=== PATIENT | male | born 1985 | race Caucasian/White ===

== ENCOUNTER 2025-08-23 19:07 | Emergency (ER) | payer BC ==
[2025-08-23] MEDS ORDERED: ASPIRIN 81 MG CHEWABLE TABLET ONE (19:27)
--- NOTE | 2025-08-23 20:07 | RAD REPORT ---
EXAM: Chest Single View HISTORY: 40 years Male CHEST PAIN COMPARISON: No prior exams FINDINGS: LUNGS/PLEURA: The lungs are clear. No pleural effusions or pneumothorax. No pulmonary edema. CARDIAC/MEDIASTINUM: The cardiac silhouette is within normal limits. UPPER ABDOMEN: No significant abnormality. BONES: No acute abnormality. LINES/TUBES/OTHER: N/A IMPRESSION: No evidence of acute cardiopulmonary disease.
[2025-08-23 20:08] LABS: Absolute Lymphocytes (CBC) 2.0 K/uL (0.7-4.9); Hematocrit 43.2 % (39.6-49.0); Hemoglobin 14.8 g/dL (13.6-17.9); MCH 28.6 pg (27.0-35.0); MCHC 34.2 g/dL (32.0-36.0); MCV 83.8 fL (80-100); MPV 8.2 fL (7.6-11.3); Nucleated RBC Absolute Count 0.0 (0-0); Nucleated Red Blood Cells % 0.1 % (0-0); RBC Red Blood Cell Count 5.16 M/uL (4.33-5.43); White Blood Count 7.80 thou/uL (4.3-10.9)
[2025-08-23 20:16] LABS: PT Prothrombin Time 12.3 SECONDS (10-13.0); Protime INR 1.09
[2025-08-23 20:29] LABS: ALT/SGPT 30 U/L (16-61); AST/SGOT 12 U/L (15-37); Albumin 3.6 g/dL (3.4-5.0); Albumin/Globulin Ratio 0.8 (1.1-1.8); Alkaline Phosphatase 55 U/L (45-117); Anion Gap 7.3 mEq/L (5.0-15.0); BUN Blood Urea Nitrogen 12 mg/dL (7-18); Globulin 4.5 g/dL (2.3-3.5); Glucose Level 109 mg/dL (74-106); Magnesium 2.4 mg/dL (1.6-2.4); NT PRO-BNP 26 pg/mL (<125); Potassium 4.3 mEq/L (3.5-5.1); Troponin High Sensitivity 8.8 pg/mL (<58.9)
[2025-08-23 20:35] LABS: Bilirubin Indirect, Calculated 0.5 mg/dL (0.2-0.8)
--- NOTE | 2025-08-23 20:39 | ER ---
Nurse's Notes [facility] Name: Kareem Singh Age: 40 yrs Sex: Male : 1985 Arrival Date: 08/23/2025 Time: 19:07 Bed 6 Private MD: Diagnosis: Chest pain, unspecified;Anxiety disorder, unspecified Presentation: 08/23 19:16 Chief complaint: Patient states: while driving to town patient had an episode of me1 midsternal cp that lasted about 2 minutes. Pain level was 5/10. Denies SOB. Denies associated nausea. Symptoms have resolved. Coronavirus screen: Vaccine status: Patient reports being unvaccinated. Ebola Screen: No symptoms or risks identified at this time. Initial Sepsis Screen: Does the patient meet any 2 criteria? No. Patient's initial sepsis screen is negative. Does the patient have a suspected source of infection? No. Patient's initial sepsis screen is negative. Risk Assessment: Do you want to hurt yourself or someone else? Patient reports no desire to harm self or others. Onset of symptoms was August 23, 2025 at 18:20. 19:16 Method Of Arrival: Ambulatory me1 19:16 Acuity: FRANCISCA 3 me1 Historical: - Allergies: 19:20 No Known Allergies; me1 - Home Meds: 19:20 None [Active]; me1 - PMHx: 19:20 None; me1 - PSHx: 19:20 None; me1 - Immunization history:: Adult Immunizations up to date. - Infectious Disease History:: Denies. - Social history:: Smoking status: Patient denies any tobacco usage or history of. Screenin:[facility] ED Fall Risk Assessment (Adult) History of falling in the last 3 months, zm including since admission No falls in past 3 months (0 pts) Confusion or Disorientation No (0 pts) Intoxicated or Sedated No (0 pts) Impaired Gait No (0 pts) Mobility Assist Device Used No (0 pt) Altered Elimination No (0 pt) Score/Fall Risk Level 0 - 2 = Low Risk Oriented to surroundings, Maintained a safe environment, Educated pt \T\ family on fall prevention, incl call for assistance when getting out of bed, Assessed \T\ reinforced patient's understanding of fall precautions, Hourly rounding (assess needs \T\ fall precautionary measures) done, Used ambulatory aids as needed (educated on \T\ assisted with), Used gait belt as appropriate. Abuse screen: Denies threats or abuse. Denies injuries from another. Nutritional screening: No deficits noted. Tuberculosis screening: No symptoms or risk factors identified. Assessment: 19:20 General: Appears in no apparent distress. comfortable, Behavior is cooperative, crying. zm 19:20 Pain: Complains of pain in mid-sternal area and left breast Pain does not radiate. Pain zm currently is 0 out of 10 on a pain scale. at worst was 3 out of 10 on a pain scale. Pain began 1 hour ago. Is episodic, lasting a few minutes. Noted to be crying, Also complains of no other associated symptoms. Neuro: Level of Consciousness is awake, alert, obeys commands, Oriented to person, place, time, situation. 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 Rhythm is sinus rhythm. Respiratory: Airway is patent Trachea midline Respiratory effort is even, unlabored, Respiratory pattern is regular, symmetrical, Breath sounds are clear bilaterally. in right upper lobe, left upper lobe, left lower lobe and right lower lobe. GI: No deficits noted. No signs and/or symptoms were reported involving the gastrointestinal system. Abdomen is obese, Bowel sounds present X 4 quads. Abd is soft and non tender X 4 quads. 20:43 Reassessment: Patient and/or family updated on plan of care and expected duration. Pain kd3 level reassessed. Patient is alert, oriented x 3, equal unlabored respirations, skin warm/dry/pink. Patient denies pain at this time. Vital Signs: 19:16 BP 156 / 102; Pulse 69; Resp 19; Temp 98.4; Pulse Ox 98% ; Weight 158.76 kg; Height 5 me1 ft. 8 in. ; Pain 0/10; 20:44 BP 127 / 82; Pulse 71; Resp 16; Pulse Ox 98% on R/A; kd3 19:16 Body Mass Index 53.22 (158.76 kg, 172.72 cm) nv1 19:16 Pain Scale: [place] [facility] [place]: 19:08 Patient arrived in ED. mr 19:09 Patient has correct armband on for positive identification. Bed in low position. Call zm light in reach. Side rails up X2. Provided Education on: CALL LIGHT USE. Client placed on continuous cardiac and pulse oximetry monitoring. NIBP monitoring applied. field merchandiser on. Pulse ox on. NIBP on. 19:10 Elsi Echeverria PA-C is PHCP. sb4 19:10 Micaela Stevenson MD is Attending Physician. sb4 19:15 Initial lab(s) drawn, by me, sent to lab. EKG done, by ED staff, reviewed by Elsi Echeverria PA-C. Inserted saline lock: 20 gauge in right antecubital area, using aseptic technique. Blood collected. Flushed with 10 mL NS. Patient maintains SpO2 saturation greater than 95% on room air. 19:20 Triage completed. me1 19:20 Arm band placed on Patient placed in an exam room. me1 19:34 Alberta Moore, RN is Primary Nurse. zm 19:35 Basic Metabolic Panel Sent. zm 19:35 CBC with Diff Sent. zm 19:35 LFT's Sent. zm 19:35 Magnesium Sent. zm 19:35 NT PRO-BNP Sent. zm 19:35 PT-INR Sent. zm 19:35 Troponin HS Sent. zm 19:52 XRAY Chest (1 view) In Process Unspecified. EDMS 20:53 No provider procedures requiring assistance completed. IV discontinued, intact, kd3 bleeding controlled, No redness/swelling at site. Pressure dressing applied. Administered Medications: 19:40 Drug: Aspirin PO Chewable Tablet 324 mg PO once; 81 mg tablets x 4 Route: PO; zm 20:54 Follow up: Response: No adverse reaction kd3 Medication: 19:35 VIS not applicable for this client. Outcome: 20:38 Discharge ordered by . sb4 20:53 Discharged to home ambulatory, kd3 20:53 Condition: stable 20:53 Discharge instructions given to patient, Instructed on discharge instructions, follow up and referral plans. Demonstrated understanding of instructions, follow-up care, 20:54 Patient left the ED. kd3 Signatures: Dispatcher [employer] EDNV IvanDiane, [place] Reg mr JennyAnita, RN RN kd3 Alberta Moore, Elsi Wall RN, PA-C PA-C sb4 Hanh Ayala RN RN me1 Corrections: (The following items were deleted from the chart) 20:21 19:20 Pain: Denies pain. Complains of pain in mid-sternal area and left breast Pain zm does not radiate. Pain currently is 0 out of 10 on a pain scale. at worst was 3 out of 10 on a pain scale. Pain began 1 hour ago. Is episodic, lasting a few minutes. Noted to be crying, Also complains of no other associated symptoms. zm 20: 19:20 Cardiovascular: Heart tones S1 S2 present Capillary refill < 3 seconds in zm bilateral fingers Patient's skin is warm and dry. Rhythm is sinus rhythm zm 20: 19:20 Pain: Denies pain. Complains of pain in mid-sternal area and left breast Pain zm does not radiate. Pain currently is 0 out of 10 on a pain scale. at worst was 3 out of 10 on a pain scale. Pain began 1 hour ago. Is episodic, lasting a few minutes. Noted to be crying, Also complains of no other associated symptoms. 20: 20:21 Pain: Complains of pain in DENIES PAIN AT THIS MOMMENT. REPORTS HAVING AN EPISODE zm OF CHEST PRESSURE LIKE AN HOUR PRIOR TO ARRIVAL zm
--- NOTE | 2025-08-23 20:39 | EDPHYS ---
Physician Documentation [facility] Name: Kareem Singh Age: 40 yrs Sex: Male : 1985 Arrival Date: 08/23/2025 Time: 19:07 Bed 6 Private MD: ED Physician Micaela Stevenson HPI: 08/23 19:21 This 40 yrs old Male presents to ER via Ambulatory with complaints of Chest Pain. sb4 19:21 Patient states that he was driving when all of a sudden he got a pain in his chest that sb4 lasted a few minutes. He states that it was not associated with any symptoms, did not radiate anywhere. He denies any prior episodes of this happening. He states that is since resolved but wanted to come in and be evaluated. He denies any diagnosed medical history. Does state that he feels very anxious. Historical: - Allergies: 19:20 No Known Allergies; me1 - Home Meds: 19:20 None [Active]; me1 - PMHx: 19:20 None; me1 - PSHx: 19:20 None; me1 - Immunization history:: Adult Immunizations up to date. - Infectious Disease History:: Denies. - Social history:: Smoking status: Patient denies any tobacco usage or history of. ROS: 19:21 Constitutional: Negative for fever, chills, and weight loss, sb4 19:21 Cardiovascular: Positive for chest pain, 19:21 All other systems are negative, Exam: 19:21 Head/Face: Normocephalic, atraumatic. Eyes: Extra-ocular motions intact. Periorbital sb4 areas with no swelling, redness, or edema. ENT: Mucous membranes moist. Cardiovascular: Regular rate and rhythm with a normal S1 and S2. Respiratory: No increased work of breathing, no retractions or nasal flaring. Abdomen/GI: Soft, non-tender, no distension. Skin: Warm, dry with normal turgor. Normal color with no rashes, no lesions, and no evidence of cellulitis. 19:21 Constitutional: The patient appears alert, awake, anxious, 19:21 Constitutional: The patient appears obese, Vital Signs: 19:16 BP 156 / 102; Pulse 69; Resp 19; Temp 98.4; Pulse Ox 98% ; Weight 158.76 kg; Height 5 me1 ft. 8 in. ; Pain 0/10; 20:44 BP 127 / 82; Pulse 71; Resp 16; Pulse Ox 98% on R/A; kd3 19:16 Body Mass Index 53.22 (158.76 kg, 172.72 cm) me1 19:16 Pain Scale: Adult me1 MDM: 19:10 Medical Screening Exam initiated sb4 19:50 Differential diagnosis: GERD, gastritis, abnormal EKG, anxiety, ACS, hypertension. Data sb4 reviewed: vital signs, nurses notes, lab test result(s), EKG, radiologic studies, and as a result, I will discharge patient. Care significantly affected by the following chronic conditions: Obesity. Scoring Tools HEART Score: History: ECG: Age: Risk Factors: 1 or 2 risk factors (1), Troponin: Total Score = 1. Counseling: I had a detailed discussion with the patient and/or guardian regarding the historical points, exam findings, and any diagnostic results supporting the discharge/admit diagnosis, the presence of at least one elevated blood pressure reading (>120/80) during this emergency department visit, lab results, radiology results, the need for outpatient follow up, for definitive care, to return to the emergency department if symptoms worsen or persist or if there are any questions or concerns that arise at home. Special discussion: Based on the patient's history, exam, and Dx evaluation, there is no indication for emergent intervention or inpatient Tx. It is understood by the patient/guardian that if the Sx's persist or worsen they need to return immediately for re-evaluation. 08/23 19:14 Order name: Basic Metabolic Panel; Complete Time: 20:36 sb4 08/23 19:14 Order name: CBC with Diff; Complete Time: 20:14 sb4 08/23 19:14 Order name: LFT's; Complete Time: 20:36 sb4 08/23 19:14 Order name: Magnesium; Complete Time: 20:36 sb4 08/23 19:14 Order name: NT PRO-BNP; Complete Time: 20:37 sb4 08/23 19:14 Order name: PT-INR; Complete Time: 20:18 sb4 08/23 19:14 Order name: Troponin HS; Complete Time: 20:37 sb4 08/23 19:14 Order name: XRAY Chest (1 view); Complete Time: 20:08 sb4 08/23 19:14 Order name: Cardiac monitoring; Complete Time: 19:34 sb4 08/23 19:14 Order name: EKG - Nurse/Tech; Complete Time: 19:24 sb4 08/23 19:14 Order name: IV Saline Lock; Complete Time: 19:34 sb4 08/23 19:14 Order name: Labs collected and sent; Complete Time: 19:35 sb4 08/23 19:14 Order name: O2 Per Protocol; Complete Time: 19:35 sb4 08/23 19:14 Order name: O2 Sat Monitoring; Complete Time: 19:35 sb4 EC:24 Rate is 61 beats/min. Rhythm is regular, Normal Sinus Rhythm. [place] interval is normal at sb4 170 msec. QRS interval is normal at 88 msec. QT interval is normal at 408 msec. No Q waves. T waves are Normal. No ST changes noted. Clinical impression: Normal ECG. Interpreted by me. Reviewed by me. Administered Medications: 19:40 Drug: Aspirin PO Chewable Tablet 324 mg PO once; 81 mg tablets x 4 Route: PO; 20:54 Follow up: Response: No adverse reaction kd3 Disposition Summary: 08/23/25 20:38 Discharge Ordered Notes: Location: Home sb4 Problem: new sb4 Symptoms: are resolved sb4 Condition: Stable sb4 Diagnosis - Chest pain, unspecified sb4 - Anxiety disorder, unspecified sb4 Followup: sb4 - With: Emergency Department - When: As needed - Reason: Trouble breathing, Worsening of condition Discharge Instructions: - Discharge Summary Sheet sb4 - Nonspecific Chest Pain, Adult, [id number] sb4 - Managing Anxiety, Adult sb4 Forms: - Work release form vc1 - Patient Portal Instructions sb4 - Leadership Thank You Letter sb4 Signatures: Dispatcher [employer] EDAlberta Bañuelos RN RN Elsi Smith PA-C PATracyC sb4 Hanh Ayala RN RN pa1 Anita Alvarado RN kd3 Corrections: (The following items were deleted from the chart) 19:15 19:14 BASIC METABOLIC PANEL+C.LAB.BRZ ordered. EDMS EDMS 19:15 19:14 CBC+H.LAB.BRZ ordered. EDMS EDMS 19:15 19:15 HEPATIC FUNCTION+C.LAB.BRZ ordered. EDMS EDMS 19:15 19:15 MAGNESIUM+C.LAB.BRZ ordered. EDMS EDMS 19:15 19:15 PROBNP+C.LAB.BRZ ordered. EDMS EDMS 19:15 19:15 PROTIME (+INR)+COAG.LAB.BRZ ordered. EDMS EDMS 19:15 19:15 Troponin High Sensitivity+C.LAB.BRZ ordered. EDMS EDMS 19:15 19:15 Chest Single View+RAD.RAD.BRZ ordered. EDMS EDMS
[2025-08-23 21:40] VITALS: TEMP 98.4; O2SAT 98
[2025-08-23 21:42] VITALS: BP 127/82
== END 2025-08-23 20:54 | disposition home or self-care (01) ==
LOC: ER 19:07
DX: R07.9 Chest pain, unspecified (principal); F41.9 Anxiety disorder, unspecified
CPT/HCPCS: 36415; 71045; 80048; 80076; 83735; 83880; 84484; 85025; 85610; 93005; 99284